=== PATIENT | male | born 1970 | race Caucasian/White ===

== ENCOUNTER → 2021-09-25 08:39 | Outpatient (BNVA) | payer SELFPAY | PROVIDERS: Visit Provider Orthopaedic Surgery | DX: M54.50 Low back pain, unspecified (principal) | CPT/HCPCS: 72110 ==

== ENCOUNTER 2021-11-04 10:33 | Outpatient (CLI) | payer MEDICAID, SELFPAY ==
--- NOTE | 2021-11-04 | MR_ITS ---
WS: [id number] MRI LUMBAR SPINE NONCONTRAST HISTORY: pain, increasing pain. Difficulty walking. COMPARISON: Lumbar spine radiographs 09/25/2021. TECHNIQUE: Sagittal and axial multisequence imaging is submitted. The L5 vertebral body is partially sacralized. This also corresponds to the radiographs from 2. Only 4 rib-bearing lumbar vertebral bodies are identified. The fifth lumbar vertebral body is part ially sacralized. This numbering pattern will be important if surgery is ever contemplated and perfor med in this patient. Mild increased signal in thoracic kyphosis. Disc spaces are very mildly narrowed throughout the lumbar spine. Quality of this examination is limi ashlee by body habitus. No acute fractures. Conus terminates normally at L1. L1-L2: Mild disc bulging with a small central disc protrusion. Mild facet and ligamentum flavum hyper trophy. L2-L3: Mild annular disc bulge with a central disc protrusion. No high-grade stenosis. L3-L4: Asymmetric disc bulging to the LEFT. Moderate-sized LEFT paracentral disc protrusion extends i nto the proximal foramen. Disc encroaches into the LEFT lateral recess and slightly displaces the tra versing L4 nerve root posteriorly. Associated vertebral body osteophytes contributing to mild foramin al narrowing. L4-L5: Mild disc bulging with a very shallow LEFT foraminal disc osteophyte complex. Disc is abutting the undersurface of the exiting LEFT L4 nerve root. L5-S1: Sacralized L5 vertebral body. Paravertebral soft tissues are negative. MR/MR lumbar spine wo con* [id number] IMPRESSION: 1. 4 lumbar type nonrib-bearing vertebral bodies identified on a radiograph [facility] 09/25/2021. The L5 vertebral body is partially sacralized. This numbering pat tern will be utilized for this examination. If surgery is contemplated in this patient correlation with surgical level and imaging will be necessary. 2. Moderate LEFT paracentral disc protrusion at L3-4 extends into the LEFT sub articular recess and proximal foramen. Disc contacts the traversing LEFT L4 ner ve root. 3. Shallow LEFT foraminal disc osteophyte complex at L4-5 with disc abutting t he undersurface of the exiting LEFT L4 nerve root. 4. Small central disc protrusion at L2-3.
== END 2021-11-04 10:34 | disposition home or self-care (01) ==
PROVIDERS: PCP Family Medicine Adult Medicine; Visit Provider Orthopaedic Surgery
DX: R26.2 Difficulty in walking, not elsewhere classified (principal); M51.26 Other intervertebral disc displacement, lumbar region; M25.78 Osteophyte, vertebrae
CPT/HCPCS: 72148

== ENCOUNTER → 2021-11-06 09:55 | Outpatient (BNVA) | payer MEDICAID, SELFPAY | PROVIDERS: PCP Family Medicine Adult Medicine; Visit Provider Physician Assistant | DX: M48.062 Spinal stenosis, lumbar region with neurogenic claudication (principal); M51.37 Other intervertebral disc degeneration, lumbosacral region; M17.0 Bilateral primary osteoarthritis of knee | CPT/HCPCS: 73560; 73565 ==

== ENCOUNTER 2021-11-11 16:00 | Outpatient (CLI) | payer MEDICAID, SELFPAY | END 2021-11-11 16:01 | disposition home or self-care (01) | LOC: SPT 16:03 | PROVIDERS: PCP Family Medicine Adult Medicine; Visit Provider Student in an Organized Health Care Education/Training Program | DX: M25.562 Pain in left knee (principal); M17.0 Bilateral primary osteoarthritis of knee | CPT/HCPCS: 97760; L1852 ==

== ENCOUNTER 2022-03-11 14:17 | Outpatient (CLI) | payer MEDICAID, SELFPAY | END 2022-03-11 14:18 | disposition home or self-care (01) | LOC: SPT 14:18 | PROVIDERS: PCP Family Medicine Adult Medicine; Visit Provider Podiatrist Foot & Ankle Surgery | DX: Z46.89 Encounter for fitting and adjustment of other specified devices (principal); M17.0 Bilateral primary osteoarthritis of knee | CPT/HCPCS: 97760; L1851 ==

== ENCOUNTER → 2023-01-05 12:04 | Outpatient (BNVA) | payer MEDICAID, SELFPAY | PROVIDERS: PCP Family Medicine Adult Medicine; Visit Provider Family Medicine Adult Medicine | DX: E66.01 Morbid (severe) obesity due to excess calories (principal); Z68.42 Body mass index [BMI] 45.0-49.9, adult; Z76.89 Persons encountering health services in other specified circumstances; R03.0 Elevated blood-pressure reading, without diagnosis of hypertension; M15.9 Polyosteoarthritis, unspecified; M51.37 Other intervertebral disc degeneration, lumbosacral region; M48.062 Spinal stenosis, lumbar region with neurogenic claudication; Z00.00 Encounter for general adult medical examination without abnormal findings | CPT/HCPCS: 80053; 80061; 84443; 85025; 85651; 86038; 86140; 86431 ==

== ENCOUNTER → 2023-02-25 11:21 | Outpatient (BNVA) | payer MEDICAID, SELFPAY | PROVIDERS: PCP Family Medicine Adult Medicine; Visit Provider Student in an Organized Health Care Education/Training Program | DX: M17.0 Bilateral primary osteoarthritis of knee (principal); Z01.818 Encounter for other preprocedural examination | CPT/HCPCS: 36415; 73560; 73565; 80053; 81001; 85025 ==

== ENCOUNTER → 2023-03-08 11:35 | Outpatient (BNVA) | payer MEDICAID, SELFPAY | PROVIDERS: PCP Family Medicine Adult Medicine; Visit Provider Family Medicine | DX: Z01.818 Encounter for other preprocedural examination (principal) | CPT/HCPCS: 81003; 87077; 87086 ==

== ENCOUNTER 2023-03-15 07:51 | Outpatient (CLI) | payer MEDICAID, SELFPAY ==
--- NOTE | 2023-03-15 08:00 | CT_ITS ---
WS: [id number] CT RIGHT KNEE, NONCONTRAST GURWINDER TECHNIQUE: Noncontrast CT of the RIGHT knee to include the RIGHT hip and ankle. CLINICAL INFORMATION: RIGHT TOTAL KNEE ARTHROPLASTY COMPARISON: None. DLP: 1005 mgy/cm All CT scans at [facility] use at least one of these dose optimization techniques: automated e xposure control; mA and/or kV adjustment per patient size (includes targeted exams where dose is matc hed to clinical indication); or iterative reconstruction. FINDINGS: Moderate to advanced degenerative arthritis RIGHT knee. Dvay-nr-mrrp articulation in the medial joint compartment. Hypertrophic change along the joint line. Vascular calcification. Small suprapatellar e ffusion. Hypertrophic patella. IMPRESSION: Images obtained for preoperative purposes.
== END 2023-03-15 07:52 | disposition home or self-care (01) ==
LOC: RAD 07:52
PROVIDERS: PCP Family Medicine Adult Medicine; Visit Provider Student in an Organized Health Care Education/Training Program
DX: M17.0 Bilateral primary osteoarthritis of knee (principal)
CPT/HCPCS: 73700

== ENCOUNTER 2023-03-25 11:52 | Observation (INO) | payer OTHER, MEDICAID, SELFPAY ==
[2023-03-25] VITALS (14 sets, daily range): BP systolic 107–146; BP diastolic 69–97; PULSE 51–82; RESP 15–18; TEMP 36.1–36.8; O2SAT 93–99; BMI 46.0
[2023-03-25] MEDS: lactated ringers 500 ML IV (07:35)
[2023-03-25] MEDS: ketorolac 30 mg/mL INJ IVP (07:36)
[2023-03-25] MEDS: acetaminophen 1,000 MG/100 ML PIGGYBACK 400 MG IV ×3 (07:36→22:49)
[2023-03-25] MEDS: scopolamine 1.5 Patch 1 PATCH TRANSDERMA (07:37)
[2023-03-25] MEDS: sodium chloride 0.9% 1,000 ML 30 ML IV (07:39)
--- NOTE | 2023-03-25 08:13 | P.ANESASSM_ITS ---
Pre-Anesthetic Assessment Height/Weight: Height 1.78 m Weight 145.603 kg Temp Pulse Resp BP Pulse Ox O2 Del Method 98.0 F 82 17 146/97 97 Room Air 03/25/23 07:13 03/25/23 07:13 03/25/23 07:13 03/25/23 07:13 03/25/23 07:13 03/25/23 07:15 Operation Date: 03/25/23 08:45 Proposed Procedures p Christiano Robot Total Knee Arthroplasty(Right) - Vinny Yates DO Familial anesthetic complications: none Was Beta Landy taken within 24 hours: N/A Was Clonidine taken within 24 hours: N/A Last intake: Intake Last Liquid Date 03/24/23 Last Liquid Time 20:00 Last Solid Date 03/24/23 Last Solid Time 20:00 Social No alcohol and No tobacco Exam alert, oriented x 3, clear to auscultation bilaterally and regular rate & rhythm Airway Submandibular: within normal limits Cervical ROM: within normal limits Mallampati: Class II Dentition: chipped Metabolic Morbid Obesity Musc/skel Lower Back Pain and Osteoarthritis/DJD Neuropsych Anxiety and Depression Anesthetic Plan ASA status: 3 Anesthesia: Regional (specify below) (SAB with right adductor blk) Medications/Allergies Home Medications Medication Instructions Recorded Confirmed Last Taken Type COMMUNICATIONS STATION MANAGER BRACE #1 ea 11/11/21 03/08/23 Unknown Rx bioinformatics analyst brace #1 ea 12/23/21 03/08/23 Unknown Rx acetaminophen 650 mg 650 mg PO Q12H 03/11/22 03/19/23 Unknown History tablet,extended release (Tylenol Arthritis Pain) Insurance Agents Supervisor Knee Brace #1 ea 07/17/22 03/08/23 Unknown Rx meloxicam 15 mg tablet 15 mg PO DAILY #90 tabs 10/06/22 03/19/23 03/12/23 Rx bupropion HCl 200 mg tablet,12 hr 200 mg PO DAILY #30 tabs 11/03/22 03/19/23 03/12/23 Rx sustained-release phentermine 37.5 mg capsule 37.5 mg PO DAILY #90 caps 03/09/23 03/19/23 03/05/23 Rx Allergies Allergy/AdvReac Type Severity Reaction Status Date / Time No Known Allergies Allergy Verified 03/25/23 07:22 Current Medications Generic Name Dose Route Start Last Admin Trade Name Freelo PRN Reason Stop Dose Admin Sodium Chloride 1,000 mls @ 30 mls/hr 03/25/23 07:15 03/25/23 07:39 Sodium Chloride 0.9% IV 03/26/23 07:14 30 mls/hr .Q24H MARY KATE Administration PFSH Anesthesia Medical History Well adult on routine health check Encounter for weight management Medial collateral ligament sprain of knee Elevated BP without diagnosis of hypertension Morbid obesity with BMI of 45.0-49.9, adult Osteoarthritis involving 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 For lumbosacral spine, bilateral knees, SI joints Surgical History History of hernia repair testical hernia repaired when he was born History of appendectomy age of 5 Family History Mother Clotting disorder Grandmother Clotting disorder maternal Denies family history of Diabetes CAD (coronary artery disease) Dementia Hyperlipidemia Chronic kidney disease (CKD) Anesthesia complication Bleeding disorder Lung disease Cancer Hypertension Stroke Social History Smoking and tobacco/nicotine status: current every day tobacco/nicotine user smokeless tobacco Smokeless tobacco user: chewing tobacco Alcohol intake: current Alcohol intake frequency: holidays/special occasions only Alcohol type: beer Substance/Drug Use: never Lives independently: Yes Household members: spouse Marital status: Highest education level completed: High School Graduate service: No Current occupational status: disabled and other Details: currently not allowed to work due to pain Do you think of yourself as: Straight/Heterosexual Current gender identity: Male Data Anesthesia Cardiac Studies: No Data to Display
[2023-03-25 08:20] LABS: Basophils # 0.1 10^3/uL (0.0-0.1); Basophils % 0.5 %; Eosinophils # 0.2 10^3/uL (0.0-0.8); Eosinophils % 1.7 %; Hematocrit 39.6 % (37-53); Lymphocytes # 2.3 10^3/uL (0.8-4.8); Lymphocytes % 24.3 %; Mean Corpuscular HGB Conc 32.6 g/dL (30-55); Mean Corpuscular Hemoglobin 29.2 pg (27-33); Mean Corpuscular Volume 89.6 fl (82-101); Mean Platelet Volume 9.7 fL (7.4-10.4); Monocytes # 0.7 10^3/uL (0.2-0.9); Monocytes % 7.6 %; Neutrophils # 6.15 10^3/uL (1.8-7.7); Neutrophils % 65.5 %; Nucleated Red Blood Cells % 0 %; Platelet Count 332 10^3/cmm (157-399); Red Blood Count 4.42 10^6/uL (3.85-5.65); Red Cell Distribution Width 13.7 % (12.1-15.1); White Blood Count 9.39 10^3/uL (3.29-11.43)
--- NOTE | 2023-03-25 08:21 | W.PM.OPSUD ---
Surgery/Procedure H&P Update DATE OF PROCEDURE: March 25, 2023 DATE H&P PERFORMED: 03/08/23 H&P UPDATE INFORMATION: I have reviewed H&P completed within last 30 days, I have examined patient prior to procedure and No changes to prior documentation PREOP DIAGNOSIS: Right knee degenerative joint disease PRIMARY INDICATION FOR PROCEDURE: Right knee degenerative joint disease PLANNED PROCEDURE: Operation Date: 03/25/23 08:45 Proposed Procedures p Christiano Robot Total Knee Arthroplasty(Right) - Vinny Yates DO
[2023-03-25 09:01] LABS: Anion Gap 17.5 (5-19); Blood Urea Nitrogen 19 mg/dL (6-20); Calcium 9.1 mg/dL (8.5-10.5); Carbon Dioxide 23 mmol/L (22-29); Chloride 104 mmol/L (98-107); Glomerular Filtration Rate 78.8 mL/min (90-130); Glucose 101 mg/dL (65-115); Osmolality Calculated 292 mOsm/kg (285-295); Potassium 4.5 mmol/L (3.5-5.1); Sodium 140 mmol/L (136-145)
[2023-03-25] MEDS: ceFAZolin 3,000 MG in sodium chloride 0.9% (plus) 100 ML 200 MG IV ×2 (09:12→17:04)
[2023-03-25] MEDS: tranexamic acid 1,000 MG/100 ML PREMIX 600 MG IV ×2 (09:25→17:51)
[2023-03-25] MEDS: tranexamic acid 1,000 mg/10mL SDV 1000 MG XX (10:16)
[2023-03-25] MEDS: ROPivacaine 0.2% Premix 100 mL 200 MG INTRA-ARTI (10:16)
[2023-03-25] MEDS: ketorolac 30 mg/mL INJ XX (10:16)
[2023-03-25] MEDS: EPINEPHrine 1 mg/mL INJ XX (10:16)
[2023-03-25] MEDS: vancomycin 1,000 MG SDV 2000 MG INTRA-ARTI (10:21)
--- NOTE | 2023-03-25 10:36 | ANES.PROC ---
Anesthesia Procedures Procedure/Date: 03/25/23 Nerve Block ^: Nerve Block 1: Main Anesthesia: spinal anesthesia block Time Out Performed: Yes Consent: requested by attending/covering physician, from patient, risks and benefits reviewed and patient agrees to proceed Nerve block location: adductor canal (right) Anesthesia monitors applied: pulse oximetry, EKG, BP cuff and oxygen Nerve block position: supine Anesthetic Used: ropivicaine 0.5% Amount of anesthesia used (mL): 20 Ultrasound used to: recognize landmarks Nerve Stimulator Used?: No Interscalene/Femoral BLK: 4 stimuplex 21 g needle used for position and inplane approach Injection: neg aspiration of heme Patient Tolerated Procedure: well Complications: none
--- NOTE | 2023-03-25 11:29 | W.PM.BPON ---
Date of Procedure: 03/25/2023 Surgeon: Vinny Yates DO Call Center Supervisor(s): TAL Parks Procedure(s) performed: Right total knee arthroplasty Christiano robotic assisted Findings of the procedure(s): Patient was found to have severe right knee degenerative joint disease underwent procedure as planned with no complications Estimated blood loss: 20 mL Specimen(s) removed: Tibia femur and patella bone cuts removed Post-operative diagnosis: [Right knee degenerative joint disease]
--- NOTE | 2023-03-25 11:33 | PM.OP ---
Operative Report Date of procedure: March 25, 2023 Surgeon: Vinny Yates DO Brazing Furnace Feeder: TAL Parks-KENISHA was necessary for assistance in this case with leg positioning retraction and protection of neurovascular structures as well as assistance in implantation wound closure and dressing application. Procedure: Preop Dx Right knee DJD Post-op diagnosis: Same Procedure done: Right total knee arthroplasty, cemented?robotic assisted Christiano Implants: Duncan triathlon size 5 femur CR cemented?right [place]view triathlon size? 4 tibia universal baseplate cemented Duncan triathlon symmetric patella size 36 mm Broadview triathlon polyethylene 9mm Surgeon: Vinny Yates DO Estimated blood loss: 20 mL Tourniquet 65mins IV fluids: 1200mL Urine output: 300mL Complications: None Condition: stable Disposition: floor Brief History: Patient is a 52-year-old female with with chronic?right knee degenerative joint disease.? Patient has been worked up in the outpatient setting in the orthopedic office at this point time through shared decision making given his [id number]-[id number] arthritis as well as failed conservative treatment, and pt would like to proceed with a?right total knee arthroplasty.? Through shared decision making elected to proceed with surgical intervention for?right total knee arthroplasty.? We talked about continued conservative treatment and surgical intervention as far as the?risk benefits complications alternatives surgical and nonsurgical treatment options.? At this point time understanding patient?risks with surgery he agrees to proceed with surgical intervention.? Once again??risk with surgery include but are not limited to make it better make it worse blood clot, heart attack, stroke, on the table, infection, injury to nerves or vessels, persistent pain, arthrofibrosis, implant failure.? Understanding these?risks patient agrees to proceed with surgical intervention consent was obtained in the office.? All questions answered. Procedure: Patient was seen and evaluated in the preoperative holding area.? Consent was?reviewed and signed with patient with plan for?right total knee arthroplasty.? All questions answered.? Correct extremity marked.? Patient seen and evaluated by the anesthesia department and once cleared for surgery was taken back to the operative suite.? Patient was placed into a supine position on the OR table.? All bony prominences were well-padded.? Patient was appropriately secured to the bed.? Patient underwent anesthesia per the anesthesia department.? Patient?received spinal anesthesia and? Goss catheter was placed.? A nonsterile tourniquet was applied to the?right thigh.? At this point in time a final timeout performed.? Patient?received appropriate preoperative antibiotics and TXA. Next the?right lower extremity was then prepped and draped in standard orthopedic fashion. Esmarch tourniquet was used exsanguinate the?right lower extremity.? Tourniquet was insufflated to 300 mmHg. A standard anterior incision was made over midline of the knee.? Sharp scalpel excision through skin and subcutaneous tissue full-thickness skin flaps were made.? Fascia was elevated off of the extensor?retinaculum was stable with medial parapatellar arthrotomy was then made.? The performed standard sequential?releases..? Immediately on entry into the joint patient was found to have severe eburnated bone and tricompartmental arthritic changes noted.? With significant osteophyte formation.? Next the the patella was then stuffed and the knee was then flexed.?? Sadie was placed superiorly around the anterior aspect of the femur this was freed of synovium and I subsequently then placed by 2 femur pins to establish my femur arrays for the Christiano?robot.? These were then placed bicortically and? femur array was then appropriately secured with appropriate visualization.? Next attention was turned towards the tibial?rays.? These were then drilled sequentially bicortically in parallel fashion and intraincisional.? I then placed my guide as well as my tibial array on in place.? This was appropriately secured and had excellent visualization with the Christiano?robot.? Next the tibial checkpoint as well as femur checkpoint were then placed.? At this point time I then subsequently established my head center as well as my medial lateral malleoli as well as my checkpoints.? Next utilizing standard Christiano technology I then mapped out the appropriate points and confirmation points around the femur as well as the tibia in standard fashion.? Once this was then done I then?removed all osteophytes in preparation for dynamic testing.? All osteophytes were?removed as well as I?removed the ACL and the PCL was excised due to its significant tearing and degeneration noted.? At this point time the knee was brought into full extension and we performed our standard evaluation of our gap balancing stressing his ligaments and extension as well as flexion appropriate adjustments were made to have appropriate gap balancing in both flexion and extension.? This plan for final counts.? We get a preoperative plan evaluating our implants which was a size 5femur and a size 4 tibia.? Next we brought in the InstyBook?robot and sequentially made our femur cuts.? All excess bony cuts were then?removed.? Finally we made our tibial cut.? Once this was done a standard PCL?retractor was then placed into this position I excised the medial and lateral meniscus.? The tibial cut was then subsequently?removed all excess bony debris was?removed.? I then utilized a lamina credit and collections analyst and?remove the posterior osteophytes.? At this point time sized the tibia and confirmed this was a size 4.? I utilized our blunt probe to establish?rotation of tibial implant.? Once this was done I then placed my tibia size 4 trial in appropriate position and then subsequently placed tibial pins to hold this into place placed a size 9 mm poly as well as a size 4 femur which was appropriately impacted in place knee was then subsequently brought into extension. Trials were then assessed, this was stable with varus valgus stress in extension as well as flexion.? this was stable with varus valgus stress in extension as well as had symmetrical translation when brought into flexion demonstrating symmetrical gaps. I had excellent balance gaps in flexion and extension with varus and valgus stresses.? At this point I was satisfied with these implants these were then verified and opened on the back table size 4 tibia, size 5 femur,? size 9 mm polythickness.? We did confirm appropriate gap balancing and stresses as well as alignment utilizing? Christiano and were satisfied with this plan.? ?At this point time with my trials in place I then towel clip the patella everted this made appropriate measurements subsequently utilizing freehand technique performed by patellar?resurfacing this was confirmed to be appropriate?resection and subsequently sized to be a 36 mm symmetric.? My drill peg guides were then clamped and appropriate position and appropriate position in the patella for appropriate tracking and parallel with the joint.? Pegs were drilled trial implant was placed and the knee was then subsequently?ranged and found to have excellent patellar tracking.? Femur pegs were then drilled.? Satisfied with our tibial placement?rotation I then utilized the keel punch and prepped the tibia.? At this point time all of our trial implants were?removed.? All checkpoints as well as guidepins and arrays were?removed and appropriate counts made.? The wound bed? was thoroughly irrigated and dried and prepped for cementation.? Cement was mixed on the back table.? Once cement was?ready this was then covered onto the tibia and the tibial baseplate was then impacted and all excess cement was?removed.? Next the polyethylene was then impacted into place on the tibial baseplate.? Next cement was placed onto the femur as well as under the femur implants and impacted in to place and all excess cement was extruded and?removed.? Knee was taken into full extension? to clear all excess cement was?removed.? Warm saline was placed over the joint.? I then towel clip patella and dried for cementation. cemented the patella into place.? This was all clamped and the cement was allowed to cure.? Thorough irrigation performed with pulse lavage.? I then placed my periarticular injection while the cement was curing.? Once cured the knee was taken through?range of motion and had excellent stability and gaps were balanced in flexion and extension.? Tourniquet was then deflated. hemostasis satisfactory with electrocautery.? Next I then subsequently closed the capsule with Ethibond suture as well as a?running strata fix suture.? Knee was then taken through?range of motion 30 times.? Next the skin was then closed in layered fashion of?running stratifix sutures of deep and subcutenous tissue and skin.? ?closed in flexion and Prineo glue was then placed over the incision this allowed to cure.? Incision was covered with rajendra dressing, with ABDs soft?roll and Crow wrap.? Patient was then awakened from anesthesia and taken to PACU in stable condition. Disposition: Patient taken to PACU in stable condition will be admitted to the floor for pain control PT/OT weight-bear as tolerated?right lower extremity dressing changes as needed, DVT prophylaxis. Pain control. Patient will?receive appropriate postoperative antibiotics. patient will be seen today by the internal medicine team for medical management.? Patient will follow up with the office in 2 weeks.? Patient understands agrees with current plan.? All questions answered.
--- NOTE | 2023-03-25 11:37 | XRR_ITS ---
PROCEDURE INFORMATION: Exam: XR Right Knee Exam date and time: 03/25/2023 11:52 AM Age: 52 years old Clinical indication: Pain; Right; Prior surgery; Surgery date: Post-operative (0-2 days); Surgery type: RT total knee arthroplasty; Additional info: Status post right total knee arthroplasty TECHNIQUE: Imaging protocol: Radiologic exam of the right knee. Views: 3 views. COMPARISON: CT knee RT [facility] [id number] 03/15/2023 8:28 AM FINDINGS: Bones/joints: Status post interval right knee arthroplasty. Hardware is intact. No acute fracture or perihardware lucency. Soft tissues: Intra-articular and soft tissue gas. Surgical kal overlie the anterior knee. XR/XR knee RT 3V* [id number] IMPRESSION: Expected postsurgical changes status post right knee arthroplasty.
[2023-03-25] MEDS: lactated ringers 1,000 ML 100 ML IV ×2 (12:57→20:14)
[2023-03-25] MEDS: chlorhexidine gluconate 0.12% Btl 473 mL 30 ML MUCOUS MEM ×3 (12:58→22:41)
[2023-03-25] MEDS: HYDROmorphone 1 mg/mL INJ 1 mL 0.5 MG IVP (14:48)
--- NOTE | 2023-03-25 15:52 | ANE.PACU2 ---
Inpatient post-anesthesia follow up: Airway intact: Yes Vital signs: Temperature 97.8 F Pulse Rate 65 Respiratory Rate 16 Blood Pressure 112/69 Pulse Oximetry 98 Oxygen Delivery Me thod Room Air Oxygen Flow Rate Fraction of Inspir ed Oxygen Hydration adequate: Yes Nausea and vomiting: No Pain level: 2 Mental status: Baseline
[2023-03-25] MEDS: docusate sodium 100 mg Capsule PO (17:04)
[2023-03-25] MEDS: iron polysaccharide complex 150 mg Capsule PO (17:04)
[2023-03-25] MEDS: calcium carb-vit d 600mg/400unit 1 Tablet 1 EACH PO (17:04)
[2023-03-25] MEDS: oxyCODONE 5 mg IR Tab/Cap PO (17:14)
--- NOTE | 2023-03-25 17:17 | P.CONIM_ITS ---
Providers/Reason For Consult 2 Consulting Physician/Specialty*: Dr. Lui/internal medicine Reason for Consult*: Medical comorbidities Requesting Physician: Dr. Yates Attending Physician: Vinny Yates DO Primary Care Provider: Andrey Cheng MD History of Present Illness History of Present Illness Skip Amor is a 52 year old male with past medical history of high blood pressure without diagnosis of hypertension, morbid obesity who underwent total right knee arthroplasty with orthopedic team today. Medicine is consulted for help with medical comorbidities. Preop blood work appreciated for normal hemoglobin 12.9, platelet count 332, BMP showing creatinine of 1, electrolytes with sodium of 140 and potassium 4.5 Review of Systems 2 General: Reports: 10 or more systems reviewed and unremarkable except in HPI and below Const: Denies: fever(s), chills, body aches, change in appetite, change in weight, malaise, night sweats, diaphoresis, change in sleep pattern, daytime sleepiness or snoring Eyes: Denies: change in vision, blurry vision, photophobia, eye discomfort or eye discharge ENMT: Denies: throat pain, enlarged tonsils, hoarseness, mouth pain, oral sores, dry mouth, tinnitus, nasal congestion or post nasal drip Card: Denies: chest pain, palpitations, irregular heart rhythm, edema, swelling of feet/ankles, lightheadedness, syncope, pre-syncope, dyspnea on exertion, orthopnea, leg pain with exertion or acrocyanosis Resp: Denies: dyspnea, productive cough, non-productive cough, wheezing, stridor, pain on inspiration, change in phlegm color, hemoptysis or chest congestion GI: Denies: abdominal pain, nausea, vomiting, hematemesis, coffee ground emesis, dysphagia, heartburn, diarrhea, constipation, bloating, GI cramping, change in bowel habits, pain on defecation, hematochezia or melena : Denies: flank pain, difficulty urinating, dysuria, urinary frequency, urinary urgency, urinary hesitancy, urinary dribbling, difficulty starting urination, change in urine stream, nocturia or hematuria Musc: Denies: neck pain, back pain, extremity pain, joint pain, joint swelling, joint redness, joint stiffness or limited range of motion Neuro: Denies: headache(s), numbness in extremities, weakness in extremities, sensory changes, lack of coordination, difficulty walking, frequent falls, dizziness, vertigo, confusion, Slurred speech present, difficulty communicating thoughts or seizure-like activity Psych: Denies: anxiety, depression, mood swings, panic attacks, hopelessness or irritability Endo: Denies: polyuria, polydipsia, tired all the time, cold intolerance, excessive sweating, flushing or heat intolerance Roman/Lymph: Denies: easy bruising or easy bleeding All/Imm: Denies: tongue swelling, facial swelling or acute wheezing Medications/Allergies Home Medications Medication Instructions Recorded Confirmed Last Taken Type DIAGNOSTIC TECH BRACE #1 ea 11/11/21 03/26/23 Unknown Rx can labeler brace #1 ea 12/23/21 03/26/23 Unknown Rx acetaminophen 650 mg 650 mg PO Q12H PRN Pain 03/11/22 03/26/23 03/05/23 History tablet,extended release (Tylenol Arthritis Pain) Polysomnographic Technologist Knee Brace #1 ea 07/17/22 03/26/23 Unknown Rx meloxicam 15 mg tablet 15 mg PO DAILY #90 tabs 10/06/22 03/26/23 03/05/23 Rx see pharmacy comment bupropion HCl 200 mg tablet,12 hr 200 mg PO BID 03/26/23 03/26/23 03/05/23 History sustained-release see pharmacy comment oxycodone 5 mg tablet 5 mg PO Q6H PRN pain postop 7 days 03/26/23 Unknown Rx #28 tabs Allergies Allergy/AdvReac Type Severity Reaction Status Date / Time No Known Allergies Allergy Verified 03/26/23 07:50 Current Medications Generic Name Dose Route Start Last Admin Trade Name Freq PRN Reason Stop Dose Admin Calcium Carbonate 1 each 03/25/23 18:00 03/25/23 17:04 Calcium Carb-Vit D 600mg/400unit 1 Tablet PO 1 each BID MARY KATE Administration Chlorhexidine Gluconate 30 ml 03/25/23 13:00 03/25/23 17:05 Chlorhexidine Gluconate 0.12% Btl 473 Ml MUCOUS MEM 30 ml QID MARY KATE Administration Docusate Sodium 100 mg 03/25/23 18:00 03/25/23 17:04 Docusate Sodium 100 Mg Capsule PO 100 mg BID MARY KATE Administration Hydromorphone HCl 0.5 mg 03/25/23 12:30 03/25/23 14:48 Hydromorphone 1 Mg/Ml Inj 1 Ml IVP 0.5 mg Q4H PRN Administration BREAKTHROUGH PAIN Lactated Ringer's 1,000 mls @ 100 mls/hr 03/25/23 12:30 03/25/23 12:57 Lactated Ringers IV 100 mls/hr .Q10H MARY KATE Administration Acetaminophen 1,000 mg in 100 mls @ 400 mls/hr 03/25/23 15:30 03/25/23 15:06 Acetaminophen IV 03/26/23 07:44 Infused Q8H MARY KATE Infusion Cefazolin Sodium 3,000 mg/ 100 mls @ 200 mls/hr 03/25/23 17:00 03/25/23 17:04 Sodium Chloride IV 03/26/23 09:29 200 mls/hr Q8H MARY KATE Administration Oxycodone HCl 5 mg 03/25/23 12:30 03/25/23 17:14 Oxycodone 5 Mg Ir Tab/Cap PO 5 mg Q4H PRN Administration MODERATE PAIN Polysaccharide Iron Complex 150 mg 03/25/23 18:00 03/25/23 17:04 Iron Polysaccharide Complex 150 Mg Capsule PO 150 mg BIDWM MARY KATE Administration PFSH Acute 2 PFSH: Medical History Well adult on routine health check Encounter for weight management Medial collateral ligament sprain of knee Elevated BP without diagnosis of hypertension Morbid obesity with BMI of 45.0-49.9, adult Osteoarthritis involving 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 For lumbosacral spine, bilateral knees, SI joints Surgical History History of hernia repair testical hernia repaired when he was born History of appendectomy age of 5 Family History Mother Clotting disorder Grandmother Clotting disorder maternal Denies family history of Diabetes CAD (coronary artery disease) Dementia Hyperlipidemia Chronic kidney disease (CKD) Anesthesia complication Bleeding disorder Lung disease Cancer Hypertension Stroke Social History Smoking and tobacco/nicotine status: current every day tobacco/nicotine user smokeless tobacco Smokeless tobacco user: chewing tobacco Alcohol intake: current Alcohol intake frequency: holidays/special occasions only Alcohol type: beer Substance/Drug Use: never Lives independently: Yes Household members: spouse Marital status: Highest education level completed: High School Graduate service: No Current occupational status: disabled and other Details: currently not allowed to work due to pain Do you think of yourself as: Straight/Heterosexual Current gender identity: Male Vitals/I&O/Wt Last Vital Signs Temp 98.0 F 03/25/23 16:42 Pulse 51 L 03/25/23 16:42 Resp 15 03/25/23 17:14 BP 112/69 03/25/23 13:00 Pulse Ox 98 03/25/23 16:42 O2 Del Method Nasal Cannula 03/25/23 16:42 03/25/23 03/25/23 03/25/23 06:59 14:59 22:59 Intake Total 1100 / 1100 100 / 1200 Output Total 320 / 320 Balance 780 / 780 100 / 880 Weight last 48 hrs Weight 145.603 kg Physical Exam 2 Narrative: General: No acute distress, AO x3, drowsy, on nasal cannula, on morbidly obese HEENT: PERRLA, pupils bilaterally equal and reactive Chest: Normal vesicular breath sounds, no added sounds, equal good air entry bilaterally CVS: S1-S2 regular, no murmurs, no tachycardia, no gallops, no rubs Abdomen: Soft, nontender, no organomegaly, bowel sounds present Neuro: No focal deficits, no facial deformity, AO x3, power 5/5 in all limbs Urinary Catheter Management: Ogss: Cath Placed During This Visit: yes Urinary Catheter Date of Insertion: 03/25/23 Urinary Catheter Time of Insertion: 09:30 Data 03/25/23 07:45 03/25/23 07:45 A&P Assessment and plan (1) Elevated BP without diagnosis of hypertension: Goal blood pressure less than 140/90 mmHg. Not on any Antihypertensives at home. Monitor blood pressures and antihypertensives accordingly. (2) Encounter for postoperative care: Post total right knee arthroplasty. Anticoagulation, physical therapy, pain medication, perioperative antibiotics as per primary team. Monitor hemoglobin. (3) Morbid obesity with BMI of 45.0-49.9, adult: Plan Restart chronic home medications including bupropion and phentermine. Anticoagulation as per primary team. Full code Diet when appropriate by surgical team Protonix OPD prophylaxis Thank you for involving us in care of Mr. Amor. Please call back with any questions. Consult Attestations 2 Medical Necessity Statement: As per Primary team Diagnoses Elevated BP without diagnosis of hypertension R03.0 Encounter for postoperative care Z48.89 Morbid obesity with BMI of 45.0-49.9, adult E66.01; Z68.42
[2023-03-25] MEDS: mupirocin oint 22 gm 1 APPLIC NASAL (17:51)
[2023-03-25 17:58] LABS: Iron 39 ug/dL (59-158); Total Iron Binding Capacity 277 mcg/dl; Unsaturated Iron Binding 238 ug/dL (112-347)
[2023-03-25 18:12] LABS: Vitamin B12 324 pg/mL (232-1245)
[2023-03-26] VITALS (9 sets, daily range): BP systolic 143–173; BP diastolic 72–90; PULSE 56–70; RESP 16–18; TEMP 36.3–37.1; O2SAT 2–98
[2023-03-26] MEDS: oxyCODONE 5 mg IR Tab/Cap PO ×3 (00:07→11:55)
[2023-03-26] MEDS: HYDROmorphone 1 mg/mL INJ 1 mL 0.5 MG IVP ×2 (01:09→07:54)
[2023-03-26] MEDS: ceFAZolin 3,000 MG in sodium chloride 0.9% (plus) 100 ML 200 MG IV ×2 (01:10→09:45)
[2023-03-26] MEDS: acetaminophen 1,000 MG/100 ML PIGGYBACK 400 MG IV (07:49)
[2023-03-26] MEDS: ketorolac 30 mg/mL INJ 15 MG IVP (07:50)
--- NOTE | 2023-03-26 07:50 | P.PN_ITS ---
Subjective 2 Subjective: Patient seen and examined this morning he is having pain but it is controlled with his medications. At this point in time he has gotten up and work with therapy plan would be for likely discharge later this morning. Patient understands and agrees with current plan. All questions answered. Was given appropriate instructions as well as understands his medications will go home on. Vitals/I&O/Wt Last Vital Signs Temp 98.2 F 03/26/23 04:00 Pulse 56 L 03/26/23 04:00 Resp 18 03/26/23 06:13 BP 173/90 03/26/23 04:00 Pulse Ox 96 03/26/23 04:00 O2 Del Method Nasal Cannula 03/26/23 04:00 03/25/23 03/26/23 03/26/23 22:59 06:59 14:59 Intake Total 1268.333 / 2368.333 993 / 3361.333 Output Total 1200 / 1520 200 / 1720 Balance 68.333 / 848.333 793 / 1641.333 Weight last 48 hrs Weight 341 lb 3 oz Weight 321 lb Physical Exam 2 Narrative: Patient seen and examined this morning right knee dressings on in place Crow bandages is loose. His compartments are soft compressible. He is able to perform straight leg raise as well as plantarflex and dorsiflex ankle. Patient is able to wiggle his toes, sensation is intact light touch distally. Distal pulses are palpable toes warm well-perfused. Urinary Catheter Management: Goss: Cath Placed During This Visit: yes, but has since been removed by the nurse Reason for Continuing Indwelling Catheter: Decision to DC Catheter Urinary Catheter Date of Insertion: 03/25/23 Urinary Catheter Time of Insertion: 09:30 Date Urinary Catheter Removed: 03/26/23 Time Urinary Catheter Discontinued: 05:57 Data 03/25/23 07:45 03/25/23 07:45 Xray Ortho: My impression: X-rays multiple views of the right knee postoperatively reviewed in person interpreted by myself demonstrating stable right total knee arthroplasty with appropriate cement mantle and implant positioning. A&P Assessment and plan (1) Status post total right knee replacement: Plan Patient seen and examined today has been appropriate postoperative antibiotics as well as start DVT prophylaxis today worked with therapy. This point time hospitalist on board for medical management appreciate their recommendations. He has a rajendra dressing on in place plan will get him discharged later today understands and agrees with current plan. All questions answered. No acute issues overnight. Attestations 2 Medical Necessity Statement*: Ongoing care status post right total knee arthroplasty Coding Level of Care Code Acute Code for Chg Fwd Diagnoses Status post total right knee replacement Z96.651
[2023-03-26] MEDS: iron polysaccharide complex 150 mg Capsule PO (07:52)
--- NOTE | 2023-03-26 07:53 | PC.PHAR ---
pt states he takes care of his own medications-pt states he hasnt picked up the phentermine 37.5mg daily that was written on 03/09/23 pt states he no longer wants to take -pt states he hasnt taken mobic since 03/05/23 ext shows last filled 01/05/23 90d/s-pt states he has been out of bupropion sr 200mg daily ext shows last filled 01/05/23 30d/s
[2023-03-26] MEDS: calcium carb-vit d 600mg/400unit 1 Tablet 1 EACH PO (08:00)
[2023-03-26] MEDS: apixaban 5 mg Tablet 2.5 MG PO (08:00)
[2023-03-26] MEDS: chlorhexidine gluconate 0.12% Btl 473 mL 30 ML MUCOUS MEM (08:00)
[2023-03-26] MEDS: docusate sodium 100 mg Capsule PO (08:00)
[2023-03-26] MEDS: multivitamin therapeutic Tablet 1 TAB PO (08:00)
--- NOTE | 2023-03-26 08:00 | P.DS_ITS ---
Discharge Providers Date of Admission: 03/25/23 11:52 Date of Discharge: March 26, 2023 Attending Provider at Admission: Vinny Yates DO Attending Provider at Discharge: Vinny Yates DO Consults: Dr. Lui-hospitalist Primary Care Provider: Andrey Cheng MD Diagnoses at Discharge Discharge Diagnosis (1) Elevated BP without diagnosis of hypertension: Status: Inactive (2) Encounter for postoperative care: Status: Inactive (3) Morbid obesity with BMI of 45.0-49.9, adult: Status: Acute Reason for Visit Reason for Visit: M17.0, 16015 Brief History: Status post right total knee arthroplasty [facility] robotic assisted Hospital Course Hospital Course Patient presented to the preoperative holding area with plan for right total knee arthroplasty after patient has been worked up in the outpatient setting for failed conservative treatment of [right ] knee degenerative joint disease. Once cleared by anesthesia for surgery patient subsequently was taken back to the operative suite underwent anesthesia per anesthesia department and then subsequently underwent a [ right] total knee arthroplasty. Procedure was performed without any complications patient was taken to PACU in stable condition patient recovered well in PACU and then was admitted to the floor postoperatively internal medicine was consulted and on board for medical management and assistance with care. Patient received appropriate PT/OT, postoperative antibiotics, postoperative TXA, pain control, postoperative DVT prophylaxis. Elevation and ice. Patient encouraged for knee range of motion allowed weightbearing as tolerated to the operative lower extremity. Dressing was changed as needed, labs were monitored daily. Patient recovered well postoperatively and worked well and progressed well with therapy. It was determined on postoperative day [1 ] the patient was stable for discharge from an orthopedic standpoint and medicine. Patient was comfortable with discharge and plan was discharged home. Patient received appropriate discharge instructions as well as pain medication and DVT prophylaxis postoperatively. Given appropriate instructions for dressing management. Patient will follow-up with Dr. Yates/orthopedics in the office in 2 weeks. All questions answered. Understand if there is any issues questions or concerns and contact the office. Physical Exam Narrative: Patient seen and examined this morning right knee dressings on in place Crow bandages is loose. His compartments are soft compressible. He is able to perform straight leg raise as well as plantarflex and dorsiflex ankle. Patient is able to wiggle his toes, sensation is intact light touch distally. Distal pulses are palpable toes warm well-perfused. Urinary Catheter Management: Goss: Cath Placed During This Visit: yes, but has since been removed by the nurse Reason for Continuing Indwelling Catheter: Decision to DC Catheter Urinary Catheter Date of Insertion: 03/25/23 Urinary Catheter Time of Insertion: 09:30 Date Urinary Catheter Removed: 03/26/23 Time Urinary Catheter Discontinued: 05:57 Discharge Data Studies Completed and Pending Completed Studies During Hospitalization Category Date Time Status XR knee RT 3V* [id number] Routine Exams 03/25/23 11:37 Completed Radiology Impressions Knee X-Ray 03/25/23 11:37 IMPRESSION: Expected postsurgical changes status post right knee arthroplasty. Laboratory Results WBC 9.39 10^3/uL (3.29-11.43) 03/25/23 07:45 RBC 4.42 10^6/uL (3.85-5.65) 03/25/23 07:45 Hgb 12.90 g/dL (11.27-16.99) 03/25/23 07:45 Hct 39.6 % (37-53) 03/25/23 07:45 MCV 89.6 fl (82-101) 03/25/23 07:45 MCH 29.2 pg (27-33) 03/25/23 07:45 MCHC 32.6 g/dL (30-55) 03/25/23 07:45 RDW 13.7 % (12.1-15.1) 03/25/23 07:45 Plt Count 332 10^3/cmm (157-399) 03/25/23 07:45 MPV 9.7 fL (7.4-10.4) 03/25/23 07:45 Neut % (Auto) 65.5 % 03/25/23 07:45 Lymph % (Auto) 24.3 % 03/25/23 07:45 Shoshone % (Auto) 7.6 % 03/25/23 07:45 Eos % (Auto) 1.7 % 03/25/23 07:45 Baso % (Auto) 0.5 % 03/25/23 07:45 Neut # (Auto) 6.15 10^3/uL (1.8-7.7) 03/25/23 07:45 Lymph # (Auto) 2.3 10^3/uL (0.8-4.8) 03/25/23 07:45 Shoshone # (Auto) 0.7 10^3/uL (0.2-0.9) 03/25/23 07:45 Eos # (Auto) 0.2 10^3/uL (0.0-0.8) 03/25/23 07:45 Baso # (Auto) 0.1 10^3/uL (0.0-0.1) 03/25/23 07:45 Nucleated RBC % (auto) 0 % 03/25/23 07:45 Nucleated RBCs # 0.0 /100WBC 03/25/23 07:45 Sodium 140 mmol/L (136-145) 03/25/23 07:45 Potassium 4.5 mmol/L (3.5-5.1) 03/25/23 07:45 Chloride 104 mmol/L (98-107) 03/25/23 07:45 Carbon Dioxide 23 mmol/L (22-29) 03/25/23 07:45 Anion Gap 17.5 (5-19) 03/25/23 07:45 BUN 19 mg/dL (6-20) 03/25/23 07:45 Creatinine 1.0 mg/dL (0.7-1.2) 03/25/23 07:45 GFR Calculation 78.8 mL/min (90-130) L 03/25/23 07:45 Glucose 101 mg/dL (65-115) 03/25/23 07:45 Calculated Osmolality 292 mOsm/kg (285-295) 03/25/23 07:45 Calcium 9.1 mg/dL (8.5-10.5) 03/25/23 07:45 Iron 39 ug/dL (59-158) L 03/25/23 07:45 TIBC 277 mcg/dl 03/25/23 07:45 % Saturation 14.0 % (20-50) L 03/25/23 07:45 Unsat Iron Binding 238 ug/dL (112-347) 03/25/23 07:45 Vitamin B12 324 pg/mL (232-1245) 03/25/23 07:45 Blood Type B Positive 03/25/23 07:45 Rho(D) Type Rh positive 03/25/23 07:45 Antibody Screen Negative 03/25/23 07:45 Vitals Last Vital Signs Temp 97.4 F L 03/26/23 11:50 Pulse 57 L 03/26/23 11:50 Resp 18 03/26/23 12:50 BP 145/72 03/26/23 11:50 Pulse Ox 97 03/26/23 11:50 O2 Del Method Nasal Cannula 03/26/23 11:50 Discharge Plan Discharge Patient Disposition: Home Condition: Stable Prescriptions: New Calcium 600 + D(3) 600 mg-10 mcg (400 unit) tablet 1 tab PO DAILY 30 Days Qty: 30 0RF Eliquis 2.5 mg tablet 2.5 mg PO BID 14 Days Qty: 28 0RF methocarbamol 500 mg tablet 500 mg PO TID 14 Days Qty: 42 0RF cephalexin 500 mg capsule 500 mg PO TID 10 Days Qty: 30 0RF Continued (DME) SECURITY INCIDENT RESPONSE ENGINEER BRACE See Rx Instructions .Route .MEDSUPPLY Qty: 1 0RF Rx Instructions: As directed acetaminophen [Tylenol Arthritis Pain] 650 mg tablet extended release 650 mg PO Q12H PRN (Reason: Pain) (DME) Strategy Intern Knee Brace See Rx Instructions .Route .MEDSUPPLY Qty: 1 0RF Rx Instructions: As directed (DME) kiln car unloader brace See Rx Instructions .Route .MEDSUPPLY Qty: 1 0RF Rx Instructions: As directed bupropion HCl 200 mg tablet sustained-release 12 hr 200 mg PO BID Discontinued meloxicam 15 mg tablet 15 mg PO DAILY Qty: 90 1RF No Action amlodipine 5 mg tablet 5 mg PO DAILY Qty: 30 5RF Discharge Orders: Discharge Order (Routine); Ordered 03/26/23 Ordered By: Vinny Yates Other Ambulatory Orders: DME: Walker (Order) Location: None Selected Ordered By: Karis Bertrand Referrals: Andrey Cheng MD [Primary Care Provider] - 03/31/23 10:00 am () Brett Yates PA [Physician Billiard Table Assembler] - 04/08/23 9:30 am Discharge Diet: Advance as tolerated Discharge Activity: Limit activity as instructed and Use walker/crutches as instructed Patient Instructions: Cephalexin (By mouth), Methocarbamol (By mouth), Oxycodone, Rapid Release (By mouth), Amlodipine (By mouth), Ondansetron (By mouth), Antacid, Calcium Containing (By mouth) (Caltrate 600, Chewable..., Apixaban (By mouth), Total Knee Replacement (DC) Activity Restrictions/Additional Instructions: Orthopedic DC Instructions Keep incisions clean dry and intact, leave rajendra bandage dressings on in place for 7 days after that may rinse incisions with warm soapy water pat dry and redress with a dry dressing. May disconnect the battery and shower over top rajendra dressing pat it dry and then subsequently reconnect battery and push the orange button to recreate vacuum seal Patient may weight-bear as tolerate to the operative extremity Utilize crutches as needed Encourage knee range of motion Ice and elevate as needed for pain and swelling Take pain medication as prescribed Take antinausea medication as needed Take antibiotic as prescribed Take muscle relaxer as prescribed for muscle spasms and pain if needed The prescribed Eliquis twice daily for the next 14 days for blood clot prevention No baths or soaks Follow-up in the orthopedic office in 2 weeks Contact the office for any questions or concerns Discharge Attestations Time Spent in Discharge Care*: less than 30 min Quality Metrics Clinical Quality Measures [ No reported AMI, CVA or VTE this stay] Coding Level of Care Code Acute Code for Chg Fwd Diagnoses Elevated BP without diagnosis of hypertension R03.0 Encounter for postoperative care Z48.89 Morbid obesity with BMI of 45.0-49.9, adult E66.01; Z68.42 Time Spent (min) 25
[2023-03-26] MEDS: mupirocin oint 22 gm 1 APPLIC NASAL (08:01)
[2023-03-26] MEDS: lactated ringers 1,000 ML 100 ML IV (08:45)
[2023-03-26] MEDS: amlodipine 5 mg Tablet PO (08:48)
[2023-03-26] MEDS: buPROPion SR (12 HR) 100 mg Tablet 200 MG PO (08:50)
--- NOTE | 2023-03-26 08:57 | PC.CHAP ---
Pastoral Care Encounter/Spiritual Assessment Type of Contact [] Declined interior design coordinator visit [] Patient/Family/Request visit [] Outpatient visit [] Follow-up visit [] Physician referral [] Code/Alert [] Routine visit [] Staff referral [] Actively dying [x] Patient sleeping [] Family support [] [] Out of room [] Palliative care [] [] Receiving care in room [] Pre-surgical visit [] Trauma [] Long length of stay [] ICU visit [] Other: Relational/Emotional Strength [] Patient feels connected with others/family/visitors/staff [] Distress [] Loneliness/isolation [] Abandonment Spirituality of Patient [] Person of Grisel [] Attends Synagogue of their Grisel [] Believes in Prayer [] Reads Bible or Gnosticist materials [] There are Spiritual issues to be addressed Chimney Sweeper Interventions [] Prayer [] Active listening [] Non-anxious presence [] Spiritual/emotional support [] Crisis/trauma care [] Spiritual counseling [] Bereavement support [] Provided bereavement packet [] Provided Bible/devotional materials [] Provided toy/stuffed animal, coloring book to patient or family member [] Provided Communion [] Anointing/[place] [] Salvation [] Completed spiritual assessment [] Other: Impact on Illness or Injury [] Angry [] Fearful [] Anxious [] Often cries [] Exhaustion [] Unable to work [] Unable to attend scientology [] Unable to walk/stand [] Unable to read [] Unable to drive [] Unable to eat/drink [] Unable to sleep [] Unable to be with family [] Patient intubated [] Other: Summary Time spent with patient
--- NOTE | 2023-03-26 09:17 | P.PN_ITS ---
Subjective 2 Subjective: No acute vents overnight. On examination patient laying comfortably in bed, slightly drowsy. Has remained hemodynamically stable and afebrile. Pain is well-controlled. On nasal cannula saturating more than 90%. Denies any new complaints. Vitals/I&O/Wt Last Vital Signs Temp 98.8 F 03/26/23 08:14 Pulse 65 03/26/23 08:14 Resp 18 03/26/23 08:14 BP 153/79 03/26/23 08:14 Pulse Ox 93 03/26/23 08:14 O2 Del Method Nasal Cannula 03/26/23 08:14 03/25/23 03/26/23 03/26/23 22:59 06:59 14:59 Intake Total 1268.333 / 2368.333 993 / 3361.333 807 / 807 Output Total 1200 / 1520 200 / 1720 Balance 68.333 / 848.333 793 / 1641.333 807 / 807 Weight last 48 hrs Weight 154.76 kg Weight 145.603 kg Physical Exam 2 Narrative: General: No acute distress, AO x3, drowsy, on nasal cannula, on morbidly obese HEENT: PERRLA, pupils bilaterally equal and reactive Chest: Normal vesicular breath sounds, no added sounds, equal good air entry bilaterally CVS: S1-S2 regular, no murmurs, no tachycardia, no gallops, no rubs Abdomen: Soft, nontender, no organomegaly, bowel sounds present Neuro: No focal deficits, no facial deformity, AO x3, power 5/5 in all limbs Urinary Catheter Management: Goss: Cath Placed During This Visit: yes, but has since been removed by the nurse Reason for Continuing Indwelling Catheter: Decision to DC Catheter Urinary Catheter Date of Insertion: 03/25/23 Urinary Catheter Time of Insertion: 09:30 Date Urinary Catheter Removed: 03/26/23 Time Urinary Catheter Discontinued: 05:57 Data 03/25/23 07:45 03/25/23 07:45 A&P Assessment and plan (1) Elevated BP without diagnosis of hypertension: Goal blood pressure less than 140/90 mmHg. Not on any Antihypertensives at home. Monitor blood pressures and antihypertensives accordingly. (2) Encounter for postoperative care: Post total right knee arthroplasty. Anticoagulation, physical therapy, pain medication, perioperative antibiotics as per primary team. Monitor hemoglobin. (3) Morbid obesity with BMI of 45.0-49.9, adult: Plan Restart chronic home medications including bupropion. States he does not take phentermine anymore and does not want to continue taking medications going forward. Anticoagulation as per primary team. Full code Diet when appropriate by surgical team Protonix OPD prophylaxis Plan for the day: Patient has remained hemodynamically stable. Blood pressure slightly elevated. Goal less than 140/90 mmHg. Will start on amlodipine 5 mg oral daily. Patient is agreeable to continue medication as an outpatient. Will advise patient to check his blood pressure daily at home and maintain a blood pressure diary after starting on amlodipine. Cannot rule out sleep apnea given morbid obesity. Will avoid narcotics if possible. Patient would benefit with outpatient sleep study. Patient is stable to be discharged from medical standpoint on oral amlodipine 5 mg daily with advised to follow-up with a primary care provider within next 1 week and with a possible outpatient study Medical med rec completed. Thank you for involving us in care of Mr. Amor. Please call back with any questions. Attestations 2 Medical Necessity Statement*: As per primary team. Diagnoses Elevated BP without diagnosis of hypertension R03.0 Encounter for postoperative care Z48.89 Morbid obesity with BMI of 45.0-49.9, adult E66.01; Z68.42
== END 2023-03-26 12:51 | disposition home or self-care (01) ==
LOC: MEDSURG 11:55
PROVIDERS: Physician Assistant; Student in an Organized Health Care Education/Training Program; Admitting Provider Student in an Organized Health Care Education/Training Program; PCP Family Medicine Adult Medicine; Visit Provider Student in an Organized Health Care Education/Training Program
PROC: 8E0Y0CZ Robotic Assisted Procedure of Lower Extremity, Open Approach (ICD-10-PCS; CPT 27447; principal; 2023-03-25 08:45)
DX: M17.11 Unilateral primary osteoarthritis, right knee (principal); R03.0 Elevated blood-pressure reading, without diagnosis of hypertension; E66.01 Morbid (severe) obesity due to excess calories; Z68.42 Body mass index [BMI] 45.0-49.9, adult; F17.220 Nicotine dependence, chewing tobacco, uncomplicated
CPT/HCPCS: 20985; 27447; 36415; 51702; 73562; 80048; 82607; 83540; 83550; 85025; 86850; 86900; 97110; 97116; 97161; 97165; C1776; G0378; J0131; J0171; J0690; J1100; J1170; J1885; J2250; J2371; J2405; J2704; J2795; J3370; J7030; J7120

== ENCOUNTER → 2023-04-08 09:11 | Outpatient (BNVA) | payer MEDICAID, SELFPAY | PROVIDERS: PCP Family Medicine Adult Medicine; Visit Provider Physician Assistant | DX: Z96.651 Presence of right artificial knee joint (principal) | CPT/HCPCS: 73560; 73565 ==

== ENCOUNTER → 2023-04-27 11:46 | Outpatient (BNVA) | payer OTHER, MEDICAID, SELFPAY | PROVIDERS: PCP Family Medicine Adult Medicine; Visit Provider Internal Medicine Rheumatology | DX: Z79.899 Other long term (current) drug therapy (principal); M19.90 Unspecified osteoarthritis, unspecified site; Z11.1 Encounter for screening for respiratory tuberculosis; Z11.59 Encounter for screening for other viral diseases; M45.6 Ankylosing spondylitis lumbar region | CPT/HCPCS: 36415; 73130; 73630; 82306; 83520; 85651; 86140; 86200; 86480; 86704; 86803; 86812; 87340 ==

== ENCOUNTER 2023-06-02 16:49 | Emergency (ER) | payer OTHER, MEDICAID, SELFPAY ==
[2023-06-02 16:54] VITALS: BP 147/83; PULSE 113; RESP 16; TEMP 36.6; O2SAT 98; BMI 46.0
--- NOTE | 2023-06-02 16:54 | USR_ITS ---
PROCEDURE INFORMATION: Exam: US Scrotum Exam date and time: 06/02/2023 5:00 PM Age: 52 years old Clinical indication: Scrotum pain; Additional info: Testicle pain TECHNIQUE: Imaging protocol: Real-time ultrasound of the scrotum and contents with color Doppler and image documentation. COMPARISON: MR lumbar spine wo con* [id number] 11/04/2021 11:07 AM FINDINGS: Right testicle: Normal. No mass. No torsion. Normal vascular flow. Left testicle: Normal. No mass. No torsion. Normal vascular flow. Epididymides: Right epididymis is enlarged and hyperemic consistent with epididymitis. Left epididymis is unremarkable.. Scrotum/soft tissues: Small right hydrocele with some internal septations and debris. Right scrotal wall is diffusely thickened and heterogeneous likely reactive.. US/US scrotum [id number] IMPRESSION: Findings consistent with acute right epididymitis with small accompanying complex hydrocele and reactive thickening of the scrotal wall.
[2023-06-02] MEDS: cefTRIAXone 500 MG in water for injection-sterile 1 ML IM (17:48)
[2023-06-02] MEDS: doxycycline 100 mg Tablet PO (17:48)
[2023-06-02 18:01] VITALS: BP 132/75; PULSE 102; RESP 18; O2SAT 98
--- NOTE | 2023-06-02 18:15 | ED_ITS ---
Documented by User: ROBB Hurley 06/02/23 18:22 HPI - Male Genitourinary General: Chief complaint: Urogenital-Male Stated complaint: swollen testicle Time Seen by Provider: 06/02/23 17:04 Source: patient Mode of arrival: ambulatory Limitations: no limitations History of Present Illness: Patient is a 52-year-old male presenting to the emergency department complaining of right testicular pain and swelling for the past 2-3 days. Patient notes he has never had this before, and onset of pain was sudden. The pain and swelling have continued to increase, and it feels sharp and worsened with palpation. He does note some extension of the pain into the right inguinal region. He denies any abdominal pain or penile discharge. Reports no risk for STDs. No urinary symptoms reported. No fevers or other symptoms. MD Complaint: testicle pain and testicle swelling Onset (ago): day(s) (2-3) Duration: constant and progressively worsening Location: right testicle Radiation: right inguinal region Severity: severe Quality: sharp Relieving factors: none Exacerbating factors: palpation Associated symptoms: Reports no associated symptoms; Deny dysuria, hematuria, nausea or vomiting Review of Systems General: Reports: 10 or more systems reviewed and unremarkable except in HPI and below Const: Denies: fever(s), chills, change in appetite, change in weight or diaphoresis ENMT: Denies: throat pain or hoarseness Card: Denies: chest pain, palpitations or lightheadedness Resp: Denies: dyspnea, productive cough or wheezing GI: Denies: abdominal pain, nausea, vomiting, diarrhea, constipation, bloating, change in stool character or hematochezia : Reports: testicular pain and scrotal swelling; Denies: flank pain, difficulty urinating, dysuria, urinary frequency, urinary urgency, hematuria or penile discharge Musc: Denies: neck pain or back pain Skin/Breast: Denies: rash or new lesions Neuro: Denies: headache(s) or dizziness PFS ED PFSH: Medical History Immunization counseling High risk medication use Inflammatory arthritis Encounter for weight management Constipation due to opioid therapy Hypertension Medial collateral ligament sprain of knee Morbid obesity with BMI of 45.0-49.9, adult Osteoarthritis involving 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 For lumbosacral spine, bilateral knees, SI joints Surgical History History of hernia repair testical hernia repaired when he was born History of appendectomy age of 5 Family History Mother Clotting disorder Grandmother Clotting disorder maternal Denies family history of Diabetes CAD (coronary artery disease) Dementia Hyperlipidemia Chronic kidney disease (CKD) Anesthesia complication Bleeding disorder Lung disease Cancer Hypertension Stroke Social History Smoking and tobacco/nicotine status: current every day tobacco/nicotine user smokeless tobacco Smokeless tobacco user: chewing tobacco Alcohol intake: current Alcohol intake frequency: holidays/special occasions only Alcohol type: beer Substance/Drug Use: never Lives independently: Yes Household members: spouse Marital status: Highest education level completed: High School Graduate service: No Current occupational status: disabled and other Details: currently not allowed to work due to pain Do you think of yourself as: Straight/Heterosexual Current gender identity: Male Physical Exam Const: COMMON NORMALS: no acute distress, average body habitus, patient oriented x3, no limitations, healthy appearing, alert and well nourished GENERAL APPEARANCE: cooperative and comfortable ORIENTATION/CONSCIOUSNESS: Yes awake HENMT: COMMON NORMALS: normocephalic, atraumatic, hearing grossly normal bilat erally, external ears normal, Normal external nose present, Normal nasal mucous membranes and turbinates present and moist oral mucous membranes HEAD & SCALP: normocephalic and atraumatic NOSE: Normal external nose present and Normal nasal mucous membranes and turbinates present EXTERNAL EAR: Yes external ears normal Eye: COMMON NORMALS: Equal, round and reactive pupils present, EOMs intact bilaterally, conjunctivae normal and normal visual medina by confrontation CONJUNCTIVA: Yes conjunctivae normal PUPIL: Yes Equal, round and reactive pupils present Neck/C-Spine: COMMON NORMALS: full ROM, supple, no meningeal signs and no JVD Resp: COMMON NORMALS: normal respiratory effort, No retractions, No use of accessory muscles and clear to auscultation bilaterally AUSCULTATION: clear to auscultation bilaterally, no crackles, no rales, no rhonchi and no wheezes Cardio: COMMON NORMALS: no JVD, regular rate, regular rhythm, S1 normal heart sound present, S2 normal heart sound present, No gallops present (Cardio), No c licks present (Cardio), No murmurs present (Cardio), No rub (Cardio) and Peripheral pulses 2+ throughout RATE: regular rate RHYTHM: regular rhythm HEART SOUNDS: S1 normal heart sound present and S2 normal heart sound present PERIPHERAL PULSES: Peripheral pulses 2+ throughout GI: COMMON NORMALS: Normal to inspection, nondistended, normoactive bowel sounds present, Soft to palpation, non-tender, No hepatosplenomegaly present and no masses AUSCULTATION: Yes normoactive bowel sounds PALPATION: Yes Soft to palpation, No Guarding due to palpation present (GI), No Rigid due to palpati on and Yes No hepatosplenomegaly present RECTAL EXAM: Yes deferred : SCROTUM: Yes testes descended bilaterally and Yes Cremasteric reflex present TESTES: Yes testicular lie normal, Yes epididymal induration Epididymal induration laterality: right, Yes epididymal tenderness, No blue dot sign and No high-riding testicle Extremity: COMMON NORMALS: normal to inspection and full ROM Neuro: COMMON NORMALS: patient oriented x3, moves all extremities, no focal motor deficits and no sensory deficits noted SENSORIUM/ORIENTATION: Yes alert MENINGEAL SIGNS: Yes no meningeal signs Psych: COMMON NORMALS: mental status grossly normal, cooperative and speech normal SPEECH: Yes normal speech Skin: COMMON NORMALS: no rashes or lesions noted GENERAL SKIN EXAM: no rashes or lesions noted Course Vital Signs: Vital signs: Vital Signs Temperature 97.9 F 06/02/23 16:54 Pulse Rate 102 H 06/02/23 18:01 Respiratory Rate 18 06/02/23 18:01 Blood Pressure 132/75 06/02/23 18:01 Pulse Oximetry 98 06/02/23 18:01 [facility] - Male Medical Decision Making This patient was seen evaluated due to acute onset of right testicular swelling and pain. On arrival patient's vitals unremarkable aside from a minimally elevated heart rate, most likely due to pain. Examination positive for an indurated right epididymis with associated tenderness to palpation. No masses were palpated on the testicle and he did have a cremasteric reflex. Testicular lie also normal. Ultrasound was obtained regardless, which showed evidence of some epididymitis. Due to patient's history I have low suspicion that this is STD related, however we will give him a shot of Rocephin prior to discharge and give prescription for doxycycline. Patient agrees with this plan and return p recautions are given. Lab Data Radiology Impressions Scrotum Ultrasound 06/02/23 16:54 IMPRESSION: Findings consistent with acute right epididymitis with small accompanying complex hydrocele and reactive thickening of the scrotal wall. All radiology interpretation(s) finalized by discharge Discharge Plan Discharge Patient Disposition: Home Clinical Impression: Epididymitis Condition: Stable Prescriptions: New doxycycline hyclate 100 mg tablet 100 mg PO BID 10 Days Qty: 20 0RF No Action acetaminophen [Tylenol Arthritis Pain] 650 mg tablet extended release 650 mg PO Q12H PRN (Reason: Pain) methotrexate sodium 2.5 mg tablet See Rx Instructions PO .week Qty: 40 3RF Rx Instructions: Split dose.. take 4 tabs in the AM and 4 tabs in the PM on the same day once a week folic acid 1 mg tablet 1 mg PO DAILY Qty: 30 3RF celecoxib [Celebrex] 200 mg capsule 200 mg PO BID PRN (Reason: pain) Qty: 60 1RF Discharge Orders: Discharge ED (Routine); Ordered 06/02/23 Ordered By: Troy Blake Referrals: Andrey Cheng MD [Primary Care Provider] - Discharge Diet: Usual diet Discharge Activity: Increase activity as tolerated Patient Instructions: Epididymitis (ED) Activity Restrictions/Additional Instructions: Take doxycycline as prescribed. Plenty of fluids. Follow-up with your primary care provider. Return with any new or concerning symptoms. 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[employer] Documented by User: Jian Cruz DO 06/05/23 08:48 HPI - Male Genitourinary General: Chief complaint: Urogenital-Male Stated complaint: swollen testicle Time Seen by Provider: 06/02/23 17:04 PFSH ED PFSH: Medical History Immunization counseling High risk medication use Inflammatory arthritis Encounter for weight management Constipation due to opioid therapy Hypertension Medial collateral ligament sprain of knee Morbid obesity with BMI of 45.0-49.9, adult Osteoarthritis involving 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 For lumbosacral spine, bilateral knees, SI joints Surgical History History of hernia repair testical hernia repaired when he was born History of appendectomy age of 5 Family History Mother Clotting disorder Grandmother Clotting disorder maternal Denies family history of Diabetes CAD (coronary artery disease) Dementia Hyperlipidemia Chronic kidney disease (CKD) Anesthesia complication Bleeding disorder Lung disease Cancer Hypertension Stroke Social History Smoking and tobacco/nicotine status: current every day tobacco/nicotine user smokeless tobacco Smokeless tobacco user: chewing tobacco Alcohol intake: current Alcohol intake frequency: holidays/special occasions only Alcohol type: beer Substance/Drug Use: never Lives independently: Yes Household members: spouse Marital status: Highest education level completed: High School Graduate service: No Current occupational status: disabled and other Details: currently not allowed to work due to pain Do you think of yourself as: Straight/Heterosexual Current gender identity: Male Course Vital Signs: Vital signs: Vital Signs Temperature 97.9 F 06/02/23 16:54 Pulse Rate 102 H 06/02/23 18:01 Respiratory Rate 18 06/02/23 18:01 Blood Pressure 132/75 06/02/23 18:01 Pulse Oximetry 98 06/02/23 18:01 [facility] - Male Medical Decision Making This patient was seen evaluated due to acute onset of right testicular swelling and pain. On arrival patient's vitals unremarkable aside from a minimally elevated heart rate, most likely due to pain. Examination positive for an indurated right epididymis with associated tenderness to palpation. No masses were palpated on the testicle and he did have a cremasteric reflex. Testicular lie also normal. Ultrasound was obtained regardless, which showed evidence of some epididymitis. Due to patient's history I have low suspicion that this is STD related, however we will give him a shot of Rocephin prior to discharge and give prescription for doxycycline. Patient agrees with this plan and return precautions are given. Chart reviewed Lab Data Radiology Impressions Scrotum Ultrasound 06/02/23 16:54 IMPRESSION: Findings consistent with acute right epididymitis with small accompanying complex hydrocele and reactive thickening of the scrotal wall. Discharge Plan Discharge Patient Disposition: Home Clinical Impression: Epididymitis Condition: Stable Prescriptions: New doxycycline hyclate 100 mg tablet 100 mg PO BID 10 Days Qty: 20 0RF No Action acetaminophen [Tylenol Arthritis Pain] 650 mg tablet extended release 650 mg PO Q12H PRN (Reason: Pain) methotrexate sodium 2.5 mg tablet See Rx Instructions PO .week Qty: 40 3RF Rx Instructions: Split dose.. take 4 tabs in the AM and 4 tabs in the PM on the same day once a week folic acid 1 mg tablet 1 mg PO DAILY Qty: 30 3RF celecoxib [Celebrex] 200 mg capsule 200 mg PO BID PRN (Reason: pain) Qty: 60 1RF Discharge Orders: Discharge ED (Routine); Ordered 06/02/23 Ordered By: Troy Blake Referrals: Andrey Cheng MD [Primary Care Provider] - Discharge Diet: Usual diet Discharge Activity: Increase activity as tolerated Patient Instructions: Epididymitis (ED) Activity Restrictions/Additional Instructions: Take doxycycline as prescribed. Plenty of fluids. Follow-up with your primary care provider. Return with any new or concerning symptoms. 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
== END 2023-06-02 18:02 | disposition home or self-care (01) ==
PROVIDERS: Emergency Provider Physician Assistant; PCP Family Medicine Adult Medicine
DX: N45.1 Epididymitis (principal); F17.220 Nicotine dependence, chewing tobacco, uncomplicated; I10 Essential (primary) hypertension
CPT/HCPCS: 76870; 96372; 99284; J0696

== ENCOUNTER → 2023-06-03 13:17 | Outpatient (BNVA) | payer OTHER, MEDICAID, SELFPAY | PROVIDERS: PCP Family Medicine Adult Medicine; Visit Provider Physician Assistant | DX: Z96.651 Presence of right artificial knee joint (principal) | CPT/HCPCS: 73560; 73565 ==

== ENCOUNTER → 2023-07-13 13:13 | Outpatient (BNVA) | payer OTHER, MEDICAID, SELFPAY | PROVIDERS: PCP Family Medicine Adult Medicine; Visit Provider Student in an Organized Health Care Education/Training Program | DX: M17.0 Bilateral primary osteoarthritis of knee; Z96.651 Presence of right artificial knee joint | CPT/HCPCS: 73560; 73565 ==

== ENCOUNTER → 2023-09-14 15:50 | Outpatient (BNVA) | payer OTHER, MEDICAID, SELFPAY | PROVIDERS: PCP Family Medicine Adult Medicine; Visit Provider Student in an Organized Health Care Education/Training Program | DX: Z96.651 Presence of right artificial knee joint (principal); M06.041 Rheumatoid arthritis without rheumatoid factor, right hand; M06.042 Rheumatoid arthritis without rheumatoid factor, left hand; M17.12 Unilateral primary osteoarthritis, left knee; M17.0 Bilateral primary osteoarthritis of knee; Z79.899 Other long term (current) drug therapy; Z71.85 Encounter for immunization safety counseling; Z11.1 Encounter for screening for respiratory tuberculosis; Z11.59 Encounter for screening for other viral diseases | CPT/HCPCS: 36415; 73560; 73565; 80076; 82306; 82565; 85025; 85651; 86140 ==

== ENCOUNTER → 2024-01-25 15:00 | Outpatient (BNVA) | payer OTHER, MEDICAID, SELFPAY | PROVIDERS: PCP Family Medicine Adult Medicine; Visit Provider Internal Medicine Rheumatology | DX: M06.041 Rheumatoid arthritis without rheumatoid factor, right hand (principal); M06.042 Rheumatoid arthritis without rheumatoid factor, left hand | CPT/HCPCS: 36415; 80076; 82565; 85025; 85651; 86140 ==

== ENCOUNTER → 2024-05-02 15:40 | Outpatient (BNVA) | payer OTHER, MEDICAID, BC, SELFPAY | PROVIDERS: PCP Family Medicine Adult Medicine; Visit Provider Internal Medicine Rheumatology | DX: M06.041 Rheumatoid arthritis without rheumatoid factor, right hand (principal); M06.042 Rheumatoid arthritis without rheumatoid factor, left hand; Z79.899 Other long term (current) drug therapy; M17.0 Bilateral primary osteoarthritis of knee; Z96.651 Presence of right artificial knee joint; Z71.85 Encounter for immunization safety counseling | CPT/HCPCS: 36415; 80076; 82565; 85025; 85651; 86140 ==

== ENCOUNTER → 2024-07-11 08:15 | Outpatient (BNVA) | payer BC, MEDICAID, SELFPAY | PROVIDERS: PCP Family Medicine; Visit Provider Family Medicine | DX: R73.01 Impaired fasting glucose (principal); E55.9 Vitamin D deficiency, unspecified; I15.8 Other secondary hypertension | CPT/HCPCS: 80053; 80061; 82306; 83036; 84443 ==

== ENCOUNTER → 2024-08-29 14:42 | Outpatient (BNVA) | payer MEDICARE, MEDICAID, SELFPAY | PROVIDERS: PCP Family Medicine; Visit Provider Internal Medicine Rheumatology | DX: M17.0 Bilateral primary osteoarthritis of knee (principal); Z96.651 Presence of right artificial knee joint; Z79.899 Other long term (current) drug therapy; Z71.85 Encounter for immunization safety counseling; M06.041 Rheumatoid arthritis without rheumatoid factor, right hand; M06.042 Rheumatoid arthritis without rheumatoid factor, left hand | CPT/HCPCS: 36415; 80076; 82565; 85025; 85651; 86480; 99214 ==